=== PATIENT | male | born 1985 | race Caucasian/White ===

== ENCOUNTER 2022-06-02 06:40 | Inpatient (IN) | payer OTHER ==
[~2022-06-02] VITALS: Ht 180.3 cm; Wt 108.9 kg
[2022-06-02 07:15] LABS: COVID AG,FIA SOURCE NASAL SWAB
[2022-06-02] MEDS ORDERED: RINGERS SOLUTION,LACTATED 1,000 ML IV ONE ×2 (07:30→07:49)
[2022-06-02] MEDS ORDERED: BUPIVACAINE HCL/PF 0.5% 30 ML VIAL ONE (08:49)
[2022-06-02] MEDS ORDERED: SUGAMMADEX SODIUM 200 MG/2 ML VIAL IVP ONE (10:12)
[2022-06-02] MEDS ORDERED: HYDROCODONE/ACETAMINOPHEN 5-325 MG TABLET ONE (11:22)
[2022-06-02] MEDS ORDERED: HYDROCODONE/ACETAMINOPHEN 5-325 MG TABLET PO ONE (11:30)
[2022-06-02] MEDS ORDERED: GLYCOPYRROLATE 0.2 MG/ML VIAL IM ONE (12:59)
[2022-06-02] MEDS ORDERED: MIDAZOLAM HCL 2 MG/2 ML VIAL IVP ONE (12:59)
[2022-06-02] MEDS ORDERED: PROPOFOL 1% 20 ML VIAL IVP ONE (12:59)
[2022-06-02] MEDS ORDERED: HYDROmorphone HCL 2 MG/ML SYRINGE IVP ONE (12:59)
[2022-06-02] MEDS ORDERED: FentaNYL CITRATE PF 100 MCG/2 ML VIAL IVP ONE (12:59)
[2022-06-02] MEDS ORDERED: ONDANSETRON HCL 4 MG/2 ML VIAL IVP ONE (12:59)
[2022-06-02] MEDS ORDERED: ROCURONIUM BROMIDE 10 MG/ML 5 ML VIAL IVP ONE (12:59)
[2022-06-02] MEDS ORDERED: LIDOCAINE/PF 2% 5 ML VIAL IM ONE (12:59)
== END 2022-06-02 13:00 | DRG 712 ==
LOC: 6S 06:40
PROVIDERS: ADMIT Urology; ATTEND Urology
PROC: 0VBF0ZZ Excision of Right Spermatic Cord, Open Approach (ICD-10-PCS; principal; 2022-06-02 09:30)
DX: N43.3 Hydrocele, unspecified (principal); Z20.822 Contact with and (suspected) exposure to COVID-19
CPT/HCPCS: 87081; 93005; J0690; J1170; J2250; J2405; J2704; J3010; J3490; J7120; Q9967